=== PATIENT | female | born 1955 | race Caucasian/White ===

== ENCOUNTER 2017-06-21 09:38 | Emergency (ER) | payer OTHER ==
--- NOTE | 2017-06-21 11:06 | UC ---
Complaint Female HPI - HPI Summary HPI Summary: 62 yo WF c/o right LBP x 1 day since yesterday, exacerbated by movement but denies muscular tenderness. Denies dysuria, urinary frequency and urgency/f/c but feels that the right LBP somewhat worsens after she voids, BM is regular without straining - History Of Current Complaint Chief Complaint: UCBackPain Stated Complaint: BACK PAIN Time Seen by Provider: 06/21/17 10:50 Hx Obtained From: Patient Onset/Duration: Sudden Onset Timing: Lasting Hours Severity Initially: Moderate Severity Currently: Moderate Character: Sharp, Dull Aggravating Factor(s): Movement Alleviating Factor(s): Nothing Associated Signs And Symptoms: Positive: Negative - Allergies/Home Medications Allergies/Adverse Reactions: Allergies Allergy/AdvReac Type Severity Reaction Status Date / Time Aspirin Allergy throat Verified 06/21/17 09:55 swells Monosodium Glutamate Allergy nausea Verified 06/21/17 09:55 vomiting caffiene Allergy nausea Uncoded 06/21/17 09:56 ,vomiting PMH/Surg Hx/FS Hx/Imm Hx - Surgical History Surgical History: Yes - Social History Alcohol Use: Occasionally Substance Use Type: None Smoking Status (MU): Never Smoked Tobacco Review of Systems Constitutional: Negative Skin: Negative Eyes: Negative ENT: Negative Respiratory: Negative Cardiovascular: Negative Gastrointestinal: Negative Genitourinary: Negative - SEE HPI Motor: Negative Neurovascular: Negative Musculoskeletal: Negative Neurological: Negative Psychological: Negative All Other Systems Reviewed And Are Negative: Yes Physical Exam Triage Information Reviewed: Yes Appearance: Pain Distress Vital Signs: Initial Vital Signs Temp 36.6 C 06/21/17 09:56 Pulse 90 06/21/17 09:56 Resp 18 06/21/17 09:56 BP 134/80 06/21/17 09:56 Pulse Ox 100 06/21/17 09:56 Eye Exam: Normal ENT Exam: Normal Dental Exam: Normal Neck exam: Normal Neck: Positive: 1 Respiratory Exam: Normal Cardiovascular Exam: Normal Abdomen Description: Positive: CVA Tenderness (R) Musculoskeletal Exam: Normal Neurological Exam: Normal Psychological Exam: Normal Skin Exam: Normal Complaint Female Dx - Course Course Of Treatment: lumbar XR neg for straightening of lumbar lordosis, UA is neg for LE, blood but pH of 7.0 and given Right CVA tenderness, will tx for occult ascending kidney infection. - Differential Dx/Diagnosis Provider Diagnoses: UTI Discharge - Discharge Plan Condition: Stable Disposition: HOME Prescriptions: Nitrofurantoin Monohyd Macro [Macrobid] 100 mg PO BID 7 Days #14 cap Patient Education Materials: Urinary Tract Infection in Women (ED), Urinary Traction Infection in Older Adults (ED) Referrals: Sarmad Spear DO [Primary Care Provider] - Additional Instructions: as tolerated
--- NOTE | 2017-06-21 11:58 | RAD ---
INDICATION: Sudden back pain. COMPARISON: There are no prior studies available for comparison. TECHNIQUE: 3 views of the lumbar spine were obtained including lateral, AP and a coned-down lateral view of the lumbar sacral junction. FINDINGS: The vertebra are in normal alignment. No fracture is seen. There is mild disc space narrowing at the L1-L2 and L5-S1 levels. IMPRESSION: MILD DISC SPACE NARROWING AT THE L1-L2 AND L5-S1 LEVELS.
--- NOTE | 2017-06-22 18:18 | UC ---
- Progress Note Progress Note: Final urine culture with no growth. She may stop the antibiotic. Should follow up with PCP regarding back pain/CVA tenderness if still experiencing symptoms. Course/Dx - Course Course Of Treatment: lumbar XR neg for straightening of lumbar lordosis, UA is neg for LE, blood but pH of 7.0 and given Right CVA tenderness, will tx for occult ascending kidney infection.
== END 2017-06-21 12:36 | disposition home or self-care (01) ==
LOC: UCEAST 09:38
DX: N39.0 Urinary tract infection, site not specified (principal); M48.07 Spinal stenosis, lumbosacral region
CPT/HCPCS: 72100; 81003; 87086; 99202; G0463